=== PATIENT | male | born 1975 | race Hispanic/Latino ===

== ENCOUNTER 2019-03-30 20:08 | Emergency (ER) | payer BC, OTHER ==
[~2019-03-30] VITALS: Ht 167.6 cm; Wt 73.5 kg
[2019-03-30] MEDS ORDERED: AZITHROMYCIN250 MG PO (20:38)
[2019-03-30] MEDS ORDERED: NAPROSYN500 MG PO (20:38)
[2019-03-30] MEDS ORDERED: TESSALON PERLE100 MG PO (20:40)
[2019-03-30] MEDS ORDERED: BACTRIM DS TAB1 EACH PO (20:44)
[2019-03-30] MEDS ORDERED: AZITHROMYCIN 250 MG TAB PO NR (20:45)
[2019-03-30] MEDS ORDERED: CEFTRIAXONE SOD 250 MG VIAL IM ONE (20:45)
[2019-03-30] MEDS ORDERED: AZITHROMYCIN 250 MG TAB ONE (21:27)
[2019-03-30] MEDS ORDERED: CEFTRIAXONE SOD 500 MG VIAL ONE (21:27)
--- NOTE | 2019-03-30 22:06 | Diagnostic Imaging Report ---
EXAMINATION: Chest PA and lateral views INDICATION: Fever for 2 days. ^[id number] ^[id number] COMPARISON: None FINDINGS: TUBES and LINES: None. LUNGS: Lungs are well inflated. Mild perihilar, peribronchial thickening and perihilar streaky densities may reflect viral infection versus reactive airway disease. There is no evidence of pneumonia or pulmonary edema. PLEURA: No pleural effusion or pneumothorax. HEART AND MEDIASTINUM: The cardiomediastinal silhouette is unremarkable. BONES AND SOFT TISSUES: No acute osseous lesion. Soft tissues are unremarkable. UPPER ABDOMEN: No free air under the diaphragm. IMPRESSION: Mild perihilar, peribronchial thickening and perihilar streaky densities may reflect viral infection versus reactive airway disease. Signed by: Dr. Dragan Winkler M.D. on 03/30/2019 10:03 PM
== END 2019-03-30 22:29 | disposition home or self-care (01) ==
LOC: FSED 20:08
DX: R50.9 Fever, unspecified (principal); R05 Cough; J20.9 Acute bronchitis, unspecified; Z20.2 Contact with and (suspected) exposure to infections with a predominantly sexual mode of transmission
CPT/HCPCS: 71046; 81003; 83518; 87086; 87800; 99283; J0696

== ENCOUNTER 2020-12-14 13:58 | Emergency (ER) | payer OTHER ==
[~2020-12-14] VITALS: Ht 167.6 cm; Wt 92.5 kg
[~2020-12-14 13:58] MED LIST: AZITHROMYCIN250 MG PO; BACTRIM DS TAB1 EACH PO; NAPROSYN500 MG PO; TESSALON PERLE100 MG PO
[2020-12-14] MEDS ORDERED: ULTRAM50 MG PO (15:45)
[2020-12-14 16:00] VITALS: BP 127/75
== END 2020-12-14 16:02 | disposition home or self-care (01) ==
LOC: ER 14:15
DX: R07.89 Other chest pain (principal); S22.32XA Fracture of one rib, left side, initial encounter for closed fracture; V49.9XXA Car occupant (driver) (passenger) injured in unspecified traffic accident, initial encounter; Y92.488 Other paved roadways as the place of occurrence of the external cause; I10 Essential (primary) hypertension; E78.00 Pure hypercholesterolemia, unspecified; F17.210 Nicotine dependence, cigarettes, uncomplicated
CPT/HCPCS: 71101; 99283

== ENCOUNTER 2022-09-04 11:49 | Emergency (ER) | payer OTHER ==
[~2022-09-04] VITALS: Ht 167.6 cm; Wt 92.5 kg
[~2022-09-04 11:49] MED LIST changes: +ULTRAM50 MG PO
[2022-09-04] MEDS ORDERED: DEXAMETHASONE SOD PHOS 10 MG/1 ML VIAL IM ONE (12:15)
[2022-09-04] MEDS ORDERED: ACETAMINOPHEN 325 MG TAB PO ONE (12:15)
[2022-09-04] MEDS ORDERED: IBUPROFEN 600 MG TAB PO ONE (12:15)
[2022-09-04] MEDS ORDERED: IBUPROFEN 600 MG TAB ONE (12:39)
[2022-09-04] MEDS ORDERED: DEXAMETHASONE SOD PHOS INJ 4 MG/ML SDV ONE (12:39)
[2022-09-04] MEDS ORDERED: ACETAMINOPHEN 325 MG TAB ONE (12:39)
[2022-09-04] MEDS ORDERED: IBUPROFEN200 MG PO (13:09)
[2022-09-04] MEDS ORDERED: CEFDINIR300 MG PO (13:09)
[2022-09-04] MEDS ORDERED: ACETAMINOPHEN500 MG PO (13:09)
== END 2022-09-04 13:17 | disposition home or self-care (01) ==
LOC: FSED 11:52
DX: M54.50 Low back pain, unspecified (principal); N39.0 Urinary tract infection, site not specified; I10 Essential (primary) hypertension; E78.00 Pure hypercholesterolemia, unspecified; F17.210 Nicotine dependence, cigarettes, uncomplicated
CPT/HCPCS: 74176; 81003; 99284; J1100